=== PATIENT | female | born 1995 | race Caucasian/White ===

== ENCOUNTER 2018-01-20 09:59 | Emergency (ER) | payer OTHER ==
[2018-01-20 10:38] VITALS: BP 124/65
--- NOTE | 2018-01-20 11:06 | UC ---
Abdominal Pain Female HPI - HPI Summary HPI Summary: Pt presents with RLQ pain radiating to her right flank that began 2 days ago. Thinks she has been voiding more frequently than usual. Has never had a UTI before. No burning or pressure with urination. Some nausea, but still eating and drinking as per usual. She is sexually active without condoms, but does take a control pill. No hx of kidney stone. Denies fever, chills, SOB, chest pain, v/d/c, hematuria, vaginal discharge, or weakness/numbness. - History of Current Complaint Chief Complaint: EDAbdPain Stated Complaint: ABD PAIN Time Seen by Provider: 01/20/18 10:50 Hx Obtained From: Patient Hx Last Menstrual Period: 01/18/18 Onset/Duration: Sudden Onset Timing: Constant Severity Initially: Moderate Severity Currently: Moderate Pain Intensity: 5 Pain Scale Used: 0-10 Numeric Location: Discrete At: RLQ Radiates: Yes Radiates to: Flank Character: Aching, Sharp Aggravating Factor(s): Nothing Alleviating Factor(s): Nothing Allergies/Adverse Reactions: Allergies Allergy/AdvReac Type Severity Reaction Status Date / Time No Known Allergies Allergy Verified 01/20/18 12:21 PMH/Surg Hx/FS Hx/Imm Hx Previously Healthy: Yes - Surgical History Surgical History: None - Family History Known Family History: Positive: Cardiac Disease, Diabetes - Social History Occupation: Employed Full-time Lives: With Family Alcohol Use: Weekly Substance Use Type: Marijuana Smoking Status (MU): Former Smoker Review of Systems Constitutional: Negative Skin: Negative Respiratory: Negative Cardiovascular: Negative Gastrointestinal: Abdominal Pain Genitourinary: Negative Musculoskeletal: Negative Neurological: Negative Psychological: Negative All Other Systems Reviewed And Are Negative: Yes Physical Exam - Summary Physical Exam Summary: GENERAL: NAD. WDWN. No pain distress. SKIN: No rashes, sores, ulcers, masses, lesions. NECK: Supple. Nontender. No lymphadenopathy. CHEST: CTAB. No r/r/w. No accessory muscle use. Breathing comfortably and in no distress. CV: RRR. Without m/r/g. Pulses intact. Brisk cap refill. ABDOMEN: TTP RLQ over McBurney's point. Soft. No distention or guarding. No organomegaly. No CVA tenderness. Bowel sounds present x4. Negative heel strike and obturator sign. MSK: FROM and 5/5 strength B/L LEs. No edema. Negative SLR and NACHO NEURO: Alert. CN II-XII grossly intact. PSYCH: Age appropriate behavior. Triage Information Reviewed: Yes Vital Signs: Initial Vital Signs Temp 98.0 F 01/20/18 10:34 Pulse 59 01/20/18 10:34 Resp 18 01/20/18 10:34 BP 124/65 01/20/18 10:34 Pulse Ox 99 01/20/18 10:34 Abd Pain Female Course/Dx - Course Course Of Treatment: UA with Trace blood. Negative test. Given her RLQ pain with no reasonable eitology - I have recommened she seek further evaluation in the ED for rule out calculi, ovarian cyst, ectopic , and appendicitis. She was agreeable to this plan and said she would go by private vehicle - her mother will drive her. - Differential Dx/Diagnosis Provider Diagnoses: RLQ pain Discharge - Discharge Plan Condition: Stable Disposition: OTHER Discharge Disposition Comment: To [facility] ED by private car Referrals: Raquel Cruz NP [Primary Care Provider] - Additional Instructions: Please go to the [facility] ED for further evaluation of your RLQ pain.
--- NOTE | 2018-01-21 18:11 | ED ---
Progress - Progress Note Progress Note: Patient's pelvic culture reveals chlamydia. She was provided with empiric treatment while in ED during day of visit for STD's - this included Rocephin 250 mg IM and Zithromax 1 g by mouth. Attempted to contact patient and notify results, follow up on symptoms and impress upon her treatment of co-partner's as well as retesting prior to engaging in sexual intercourse. Voice mail reports that the "box is full and unable to leave messages". A letter will be mailed to her house. Form complete. Leah Mcwilliams, doug. Course/Dx - Course Course Of Treatment: UA with Trace blood. Negative test. Given her RLQ pain with no reasonable eitology - I have recommened she seek further evaluation in the ED for rule out calculi, ovarian cyst, ectopic , and appendicitis. She was agreeable to this plan and said she would go by private vehicle - her mother will drive her.
== END 2018-01-20 11:39 ==
LOC: UCEAST 09:59
DX: A74.9 Chlamydial infection, unspecified (principal); Z32.02 Encounter for pregnancy test, result negative; Z87.891 Personal history of nicotine dependence
CPT/HCPCS: 81003; 84702; 99212; G0463

== ENCOUNTER 2018-01-20 12:15 | Emergency (ER) | payer OTHER ==
[2018-01-20 12:50] LABS: ABS Basophils 0 10^3/ul (0-0.2); ABS Eosinophils 0.2 10^3/ul (0-0.6); ABS Lymphocytes 2.7 10^3/ul (1.0-4.8); ABS Nucleated RBC 0 10^3/ul; Eosinophil % 1.7 % (0-6); Hematocrit 44 % (35-47); Hemoglobin 15.1 g/dl (12.0-16.0); Lymphocyte % 22.9 % (25-47); Mean Corpuscular HGB Conc 35 g/dl (31-36); Mean Corpuscular Hemoglobin 31 pg (27-31); Mean Corpuscular Volume 89 fL (80-97); Mean Platelet Volume 7 um3 (7.4-10.4); Nucleated Red Blood Cells % 0.1; Platelet Count 349 10^3/ul (150-450); Red Blood Count 4.94 10^6/ul (4.0-5.4); Red Cell Distribution Width 13 % (10.5-15)
[2018-01-20 13:06] LABS: Urine Appearance Clear; Urine Blood Negative (Negative); Urine Color Straw; Urine Ketones Negative (Negative); Urine Protein Negative (Negative); Urine Specific Gravity 1.013 (1.010-1.030); Urine Urobilinogen Negative (Negative)
[2018-01-20 13:26] LABS: EGFR Non-African American 84.5 (>60)
[2018-01-20] MEDS ORDERED: Ketorolac INJ* 30 MG/ML 1 ML VIAL IV PUSH ONE (13:27)
--- NOTE | 2018-01-20 14:16 | RAD ---
INDICATION: Right lower quadrant pain. COMPARISON: There are no prior studies available for comparison. TECHNIQUE: Multiple real-time transabdominal images of the pelvis were obtained. FINDINGS: The uterus is normal in size, shape and echogenicity. The uterus measured 5.7 x 2.6 x 4.4 cm. The endometrial echo measured 0.4 cm in thickness. The right ovary measured 2.5 x 1.6 x 2.6 cm. The left ovary measured 2.5 x 1.4 x 1.4 cm. There is vascular flow within both ovaries. There are small bilateral follicular cysts. No free intraperitoneal fluid is seen. IMPRESSION: NEGATIVE EXAM.
[2018-01-20] MEDS ORDERED: Iohexol 300* (CONTRAST) 10 ML SDV IV ONE (14:31)
--- NOTE | 2018-01-20 16:14 | RAD ---
INDICATION: Right flank abdominal pain. COMPARISON: Comparison is made with a prior pelvic ultrasound January 20, 2018. TECHNIQUE: A CT scan of the abdomen and pelvis was performed with intravenous and oral contrast following intravenous injection of 96 ml of Omnipaque 300 nonionic contrast. Contiguous axial sections were obtained from the lung bases through the symphysis pubis. Images were reconstructed in the coronal and sagittal planes. FINDINGS: The lung bases are clear. No pleural effusion is present. The liver and spleen are within normal limits in size without significant focal abnormality. No calcified gallstones are seen. The pancreas appears to be within normal limits in size. The kidneys and adrenal glands are normal in size. No hydronephrosis is seen. No significant focal renal abnormality is seen. The aorta is normal in caliber and demonstrates homogeneous contrast opacification. No significant enlarged retroperitoneal lymph nodes are seen. The stomach, small and large bowel appear nondistended. The appendix is within normal limits. There is no evidence for diverticulitis or colitis. The uterus is anteverted and normal in size. No free intraperitoneal air or fluid is seen. There is a mild to moderate lumbar scoliosis convex toward the left side. No significant focal osseous normality is seen. IMPRESSION: NO EVIDENCE FOR ACUTE FINDING OR CAUSE FOR THE PATIENT'S ABDOMINAL PAIN IS SEEN.
[2018-01-20] MEDS ORDERED: cefTRIAXone VIAL(*) 500 MG in NS 0.9% 50 ML* 50 ML IVPB ONE (17:57)
[2018-01-20] MEDS ORDERED: Azithromycin TAB* 250 MG PO ONE (17:58)
[2018-01-20] MEDS ORDERED: cefTRIAXone VIAL(*) 250 MG VIAL IM ONE (18:07)
[2018-01-20] MEDS ORDERED: Lidocaine 2% PF * 5 ML VIAL ONE (18:12)
[2018-01-20 18:33] VITALS: BP 121/74
--- NOTE | 2018-01-22 13:29 | PN ---
Progress Note - Progress Note Date of Service: 01/22/18 Note: Patient vaginal cultures grew Candidiasis. Spoke with patient's and prescription for Diflucan for a one-time dose for this.
--- NOTE | 2018-01-31 14:06 | ED ---
Chacha Chairez Gabriel, scribed for Cj Smith MD on 01/20/18 at 1229 . Abdominal Pain/Female - HPI Summary HPI Summary: This patient is a 22 year old F presenting to [facility] accompanied by her father with a chief complaint of RLQ pain since 2 days. The pain began the same day as her period and she believed it was due to that, she has finished her menstruation cycle. The patient rates the sharp pain 7/10 in severity and states it radiates into her back. Symptoms alleviated by Tylenol and ibuprofen. Patient reports dysuria, vaginal irritation, SOB, diaphoresis, nausea, and diarrhea. Patient denies fever, vomiting, periumbilical pain, blood in stool, and vaginal discharge. Pt was seen at today and they r/o UTI. No history of ovarian cysts or kidney stones. - History of Current Complaint Chief Complaint: EDAbdPain Stated Complaint: ABD PAIN Time Seen by Provider: 01/20/18 12:23 Hx Obtained From: Patient Hx Last Menstrual Period: 01/18/18 Onset/Duration: Lasting Days - 2, Still Present Timing: Constant Severity Initially: Moderate Severity Currently: Moderate Pain Intensity: 7 Pain Scale Used: 0-10 Numeric Location: Discrete At: RLQ Radiates: Yes Radiates to: Back Character: Sharp Alleviating Factor(s): OTC Analgesics Associated Signs and Symptoms: Positive: Negative - fever, vomiting, periumbilical pain, blood in stool, and vaginal discharge, Other: - dysuria, vaginal irritation, SOB, diaphoresis, nausea, and diarrhea Allergies/Adverse Reactions: Allergies Allergy/AdvReac Type Severity Reaction Status Date / Time No Known Allergies Allergy Verified 01/20/18 12:21 Home Medications: Home Medications Ethinyl Estradiol/Drospirenone [Allison 28 Tablet (Nf)] 1 tab PO DAILY 01/20/18 [ History Confirmed 01/20/18] PMH/Surg Hx/FS Hx/Imm Hx Endocrine/Hematology History: Denies: Hx Diabetes, Hx Thyroid Disease Cardiovascular History: Denies: Hx Hypertension Respiratory History: Denies: Hx Asthma, Hx Chronic Obstructive Pulmonary Disease (COPD) GI History: Denies: Hx Ulcer Infectious Disease History: No Infectious Disease History: Denies: Hx Hepatitis, Hx Human Immunodeficiency Virus (HIV), Traveled Outside the [place] in Last 30 Days - Family History Known Family History: Positive: Cardiac Disease, Diabetes, Other - kidney stones - Social History Occupation: Employed Full-time - [employer] Lives: With Family Alcohol Use: Weekly Substance Use Type: Reports: Marijuana Smoking Status (MU): Former Smoker Review of Systems Positive: Skin Diaphoresis. Negative: Fever, Chills Negative: Erythema Negative: Sore Throat Negative: Chest Pain Positive: Shortness Of Breath - due to pain . Negative: Cough Gastrointestinal: Negative - periumbilical pain, blood in stool Positive: Abdominal Pain, Diarrhea, Nausea. Negative: Vomiting Genitourinary: Other - vaginal irritation Positive: dysuria. Negative: discharge, hematuria Negative: Myalgia, Edema Negative: Rash Neurological: Negative - dizziness All Other Systems Reviewed And Are Negative: Yes Physical Exam - Summary Physical Exam Summary: Constitutional: Well-developed, Well-nourished, Alert. (-) Distressed, not ill appearing Skin: Warm, Dry HENT: Normocephalic; Atraumatic Eyes: Conjunctiva normal Neck: Musculoskeletal ROM normal neck. (-) JVD, (-) Stridor, (-) Tracheal deviation Cardio: Rhythm regular, rate normal, Heart sounds normal; Intact distal pulses; The pedal pulses are 2+ and symmetric. Radial pulses are 2+ and symmetric. (-) Murmur Pulmonary/Chest wall: Effort normal. (-) Respiratory distress, (-) Wheezes, (-) Rales Abd: Soft, (+) Tenderness in RLQ, (-) Distension, (-) Guarding, (-) Rebound Musculoskeletal: (-) Edema Lymph: (-) Cervical adenopathy Neuro: Alert, Oriented x3 Psych: Mood and affect Normal Pelvic: theres was green cervical discharge, no cervical motion tenderness, mild right adnexal tenderness Triage Information Reviewed: Yes Vital Signs On Initial Exam: Initial Vitals Temp Pulse Resp BP Pulse Ox 97.6 F 78 18 122/78 97 01/20/18 12:18 01/20/18 12:18 01/20/18 12:18 01/20/18 12:18 01/20/18 12:18 Vital Signs Reviewed: Yes Diagnostics - Vital Signs Vital Signs Temp Pulse Resp BP Pulse Ox 01/20/18 12:18 97.6 F 78 18 122/78 97 - Laboratory Lab Results: Lab Results 01/20/18 01/20/18 01/20/18 Range/Units 12:40 12:40 12:40 WBC 12.0 H (3.5-10.8) 10^3/ul RBC 4.94 (4.0-5.4) 10^6/ul Hgb 15.1 (12.0-16.0) g/dl Hct 44 (35-47) % MCV 89 (80-97) fL MCH 31 (27-31) pg MCHC 35 (31-36) g/dl RDW 13 (10.5-15) % Plt Count 349 (150-450) 10^3/ul MPV 7 L (7.4-10.4) um3 Neut % (Auto) 66.6 (38-83) % Lymph % (Auto) 22.9 L (25-47) % Pender % (Auto) 8.4 H (0-7) % Eos % (Auto) 1.7 (0-6) % Baso % (Auto) 0.4 (0-2) % Absolute Neuts (auto) 8.0 H (1.5-7.7) 10^3/ul Absolute Lymphs (auto) 2.7 (1.0-4.8) 10^3/ul Absolute Monos (auto) 1.0 H (0-0.8) 10^3/ul Absolute Eos (auto) 0.2 (0-0.6) 10^3/ul Absolute Basos (auto) 0 (0-0.2) 10^3/ul Absolute Nucleated RBC 0 10^3/ul Nucleated RBC % 0.1 Sodium 136 (133-145) mmol/L Potassium 4.0 (3.5-5.0) mmol/L Chloride 105 (101-111) mmol/L Carbon Dioxide 23 (22-32) mmol/L Anion Gap 8 (2-11) mmol/L BUN 14 (6-24) mg/dL Creatinine 0.83 (0.51-0.95) mg/dL Est GFR ( Amer) 108.6 (>60) Est GFR (Non-Af Amer) 84.5 (>60) BUN/Creatinine Ratio 16.9 (8-20) Glucose 80 (70-100) mg/dL Lactic Acid (0.5-2.0) mmol/L Calcium 9.9 (8.6-10.3) mg/dL Total Bilirubin 0.40 (0.2-1.0) mg/dL AST 14 (13-39) U/L ALT 9 (7-52) U/L Alkaline Phosphatase 62 (34-104) U/L C-Reactive Protein 7.81 H (< 5.00) mg/L Total Protein 7.6 (6.4-8.9) g/dL Albumin 4.5 (3.2-5.2) g/dL Globulin 3.1 (2-4) g/dL Albumin/Globulin Ratio 1.5 (1-3) Urine Color Straw Urine Appearance Clear Urine pH 6.0 (5-9) Ur Specific [place] 1.013 (1.010-1.030) Urine Protein Negative (Negative) Urine Ketones Negative (Negative) Urine Blood Negative (Negative) Urine Nitrate Negative (Negative) Urine Bilirubin Negative (Negative) Urine Urobilinogen Negative (Negative) Ur Leukocyte Esterase Negative (Negative) Urine Glucose Negative (Negative) C.trachomatis (Amp Det) (Negative) N.gonorrhoeae (Amp Det) (Negative) T.vaginalis (Amp Det) (Negative) 01/20/18 01/20/18 Range/Units 12:40 17:56 WBC (3.5-10.8) 10^3/ul RBC (4.0-5.4) 10^6/ul Hgb (12.0-16.0) g/dl Hct (35-47) % MCV (80-97) fL MCH (27-31) pg MCHC (31-36) g/dl RDW (10.5-15) % Plt Count (150-450) 10^3/ul MPV (7.4-10.4) um3 Neut % (Auto) (38-83) % Lymph % (Auto) (25-47) % Pender % (Auto) (0-7) % Eos % (Auto) (0-6) % Baso % (Auto) (0-2) % Absolute Neuts (auto) (1.5-7.7) 10^3/ul Absolute Lymphs (auto) (1.0-4.8) 10^3/ul Absolute Monos (auto) (0-0.8) 10^3/ul Absolute Eos (auto) (0-0.6) 10^3/ul Absolute Basos (auto) (0-0.2) 10^3/ul Absolute Nucleated RBC 10^3/ul Nucleated RBC % Sodium (133-145) mmol/L Potassium (3.5-5.0) mmol/L Chloride (101-111) mmol/L Carbon Dioxide (22-32) mmol/L Anion Gap (2-11) mmol/L BUN (6-24) mg/dL Creatinine (0.51-0.95) mg/dL Est GFR ( Amer) (>60) Est GFR (Non-Af Amer) (>60) BUN/Creatinine Ratio (8-20) Glucose (70-100) mg/dL Lactic Acid 0.8 (0.5-2.0) mmol/L Calcium (8.6-10.3) mg/dL Total Bilirubin (0.2-1.0) mg/dL AST (13-39) U/L ALT (7-52) U/L Alkaline Phosphatase (34-104) U/L C-Reactive Protein (< 5.00) mg/L Total Protein (6.4-8.9) g/dL Albumin (3.2-5.2) g/dL Globulin (2-4) g/dL Albumin/Globulin Ratio (1-3) Urine Color Urine Appearance Urine pH (5-9) Ur Specific [place] (1.010-1.030) Urine Protein (Negative) Urine Ketones (Negative) Urine Blood (Negative) Urine Nitrate (Negative) Urine Bilirubin (Negative) Urine Urobilinogen (Negative) Ur Leukocyte Esterase (Negative) Urine Glucose (Negative) C.trachomatis (Amp Det) Positive A (Negative) N.gonorrhoeae (Amp Det) Negative (Negative) T.vaginalis (Amp Det) Negative (Negative) Result Diagrams: 01/20/18 12:40 01/20/18 12:40 Lab Statement: Any lab studies that have been ordered have been reviewed, and results considered in the medical decision making process. - CT CT ABD/Pelvis CT Interpretation Completed By: Radiologist - NO EVIDENCE FOR ACUTE FINDING OR CAUSE FOR THE PATIENT'S ABDOMINAL PAIN IS SEEN. ED physician has reviewed this radiology report. - Ultrasound No standard instances Ultrasound Interpretation Completed By: Radiologist - Pelvic US reveals, per radiologist, negative exam ED physician has reviewed this radiology report. Re-Evaluation - Re-Evaluation First Eval Re-Evaluation Time: 14:46 Change: Improved Comment: After toradol the patient symptoms have significantly improved. Second Eval Re-Evaluation Time: 18:06 Change: Unchanged - I discussed the test results with the patient and told her about the treatment plan. She understands and agrees. Abdominal Pain Fem Course/Dx - Course Course Of Treatment: Pelvic US reveals, per radiologist, negative exam. CT ABD/ Pelvis reveals, per radiologist, NO EVIDENCE FOR ACUTE FINDING OR CAUSE FOR THE PATIENT'S ABDOMINAL PAIN IS. I will treat empirically for GC chlamydia in the ED given the urinary symptoms I will also treat empirically for UTI bending urine cultures. Test results with no significant abnormalities. In the ED course the patient was given toradol, rocephin, and Zithromax. Dx ABD pain. Patient will be discharged with prescription for bactrim and follow up from in two days. The patient is agreeable with this plan. - Diagnoses Provider Diagnoses: Abdominal pain, Vaginal discharge Discharge - Sign-Out/Discharge Documenting (check all that apply): Discharge - DC - Discharge Plan Condition: Stable Disposition: HOME Prescriptions: Fluconazole [Diflucan 150 MG (NF)] 150 mg PO ONCE #1 tab Sulfamethox/Trimethoprim DS* [Bactrim DS 800/160 TAB*] 1 tab PO BID #6 tab traMADol TAB* [Ultram*] 50 mg PO Q6HR PRN #8 tab MDD 4 PRN Reason: Pain - Moderate To Severe Patient Education Materials: Abdominal Pain (ED) Forms: *Work Release Referrals: Raquel Cruz NP [Primary Care Provider] - Additional Instructions: Follow up at urgent care in two days. RETURN TO EMERGENCY DEPARTMENT FOR ANY NEW OR WORSENING SYMPTOMS - Billing Disposition and Condition Condition: STABLE Disposition: HOME The documentation as recorded by the Chacha gongora Gabriel accurately reflects the service I personally performed and the decisions made by me, Cj Smith MD.
== END 2018-01-20 18:30 | disposition home or self-care (01) ==
LOC: ED 12:15
DX: R10.31 Right lower quadrant pain (principal); R07.9 Chest pain, unspecified; N89.8 Other specified noninflammatory disorders of vagina; Z87.891 Personal history of nicotine dependence; R06.02 Shortness of breath; R30.0 Dysuria
CPT/HCPCS: 36415; 74177; 76856; 80053; 81003; 83605; 85025; 86140; 87480; 87491; 87510; 87591; 87661; 99283; A9270-GY; J0696; J1885; Q9967

== ENCOUNTER 2018-08-17 12:45 | Emergency (ER) | payer OTHER ==
[2018-08-17 13:41] LABS: ABS Basophils 0 10^3/ul (0-0.2); ABS Eosinophils 0.1 10^3/ul (0-0.6); ABS Lymphocytes 0.9 10^3/ul (1.0-4.8); ABS Monocytes 1.2 10^3/ul (0-0.8); ABS Neutrophils 2.8 10^3/ul (1.5-7.7); ABS Nucleated RBC 0 10^3/ul; Eosinophil % 1.6 % (0-6); Hematocrit 41 % (35-47); Hemoglobin 14.1 g/dl (12.0-16.0); Lymphocyte % 18.5 % (25-47); Mean Corpuscular HGB Conc 35 g/dl (31-36); Mean Corpuscular Hemoglobin 31 pg (27-31); Mean Corpuscular Volume 88 fL (80-97); Nucleated Red Blood Cells % 0.4; Platelet Count 256 10^3/ul (150-450); Red Cell Distribution Width 13 % (10.5-15)
[2018-08-17 14:09] LABS: EGFR Non-African American 88.7 (>60)
[2018-08-17 15:02] LABS: Urine Appearance Clear; Urine Blood Negative (Negative); Urine Color Yellow; Urine Ketones Negative (Negative); Urine Protein Negative (Negative); Urine Specific Gravity 1.014 (1.010-1.030); Urine Urobilinogen Negative (Negative)
--- NOTE | 2018-08-17 15:39 | ED ---
Abdominal Pain/Female - HPI Summary HPI Summary: Patient is a 23-year-old female presents to the ED with right-side body pain wrapping around to the rhomboid area. No history of kidney stones or gallstones. She states symptoms began approximately 2 days ago, have remained constant, worse with positioning, better with rest. Denies any alleviation or aggravation with eating or drinking. She has not tried any medication for relief. Denies any urinary symptoms, abdominal pain, nausea, vomiting, diarrhea , constipation, suprapubic tenderness, or urinary symptoms. She takes no medications and is otherwise healthy. - History of Current Complaint Chief Complaint: EDAbdPain Stated Complaint: ABD/FLANK PAIN Time Seen by Provider: 08/17/18 12:52 Hx Obtained From: Patient Hx Last Menstrual Period: 01/18/18 ?: No Onset/Duration: Sudden Onset Timing: Constant Severity Initially: Moderate Severity Currently: Moderate Pain Intensity: 6 Pain Scale Used: 0-10 Numeric Location: Other - right side body Radiates: No Character: Cramping Aggravating Factor(s): Nothing Alleviating Factor(s): Nothing Associated Signs and Symptoms: Positive: Negative. Negative: Urinary Symptoms, Decreased Appetite, Nausea, Vomiting Allergies/Adverse Reactions: Allergies Allergy/AdvReac Type Severity Reaction Status Date / Time No Known Allergies Allergy Verified 08/17/18 12:50 PMH/Surg Hx/FS Hx/Imm Hx Previously Healthy: Yes Endocrine/Hematology History: Denies: Hx Diabetes, Hx Thyroid Disease Cardiovascular History: Denies: Hx Hypertension Respiratory History: Denies: Hx Asthma, Hx Chronic Obstructive Pulmonary Disease (COPD) GI History: Denies: Hx Ulcer History: Denies: Hx Renal Disease - Immunization History Hx Pertussis Vaccination: No Immunizations Up to Date: Yes Infectious Disease History: No Infectious Disease History: Denies: Hx Hepatitis, Hx Human Immunodeficiency Virus (HIV), Traveled Outside the [place] in Last 30 Days - Family History Known Family History: Positive: Cardiac Disease, Diabetes, Other - kidney stones - Social History Occupation: Employed Full-time Lives: With Family Alcohol Use: Weekly Hx Substance Use: Yes Substance Use Type: Reports: Marijuana Hx Tobacco Use: Yes Smoking Status (MU): Former Smoker Review of Systems Constitutional: Negative Negative: Fever, Chills, Fatigue, Skin Diaphoresis Negative: Palpitations, Chest Pain Negative: Shortness Of Breath, Cough - , Negative: Abdominal Pain, Vomiting, Diarrhea, Nausea Genitourinary: Negative Positive: no symptoms reported, see HPI Positive: Myalgia - right sided pain to the body Skin: Negative All Other Systems Reviewed And Are Negative: Yes Physical Exam Triage Information Reviewed: Yes Vital Signs On Initial Exam: Initial Vitals Temp Pulse Resp BP Pulse Ox 97.6 F 88 16 136/75 98 08/17/18 12:46 08/17/18 12:46 08/17/18 12:46 08/17/18 12:46 08/17/18 12:46 Vital Signs Reviewed: Yes Appearance: Positive: Well-Appearing, Well-Nourished Skin: Positive: Warm, Skin Color Reflects Adequate Perfusion Head/Face: Positive: Normal Head/Face Inspection Eyes: Positive: EOMI, GEORGINA, Conjunctiva Clear Neck: Positive: Supple, No Lymphadenopathy Respiratory/Lung Sounds: Positive: Clear to Auscultation, Breath Sounds Present Cardiovascular: Positive: RRR, Pulses are Symmetrical in both Upper and Lower Extremities Musculoskeletal: Positive: Normal, Strength/ROM Intact Neurological: Positive: Sensory/Motor Intact, Alert, Oriented to Person Place, Time, Speech Normal Psychiatric: Positive: Normal, Affect/Mood Appropriate AVPU Assessment: Alert Diagnostics - Vital Signs Vital Signs Temp Pulse Resp BP Pulse Ox 08/17/18 14:00 84 08/17/18 13:03 87 142/85 97 08/17/18 13:02 85 98 08/17/18 12:46 97.6 F 88 16 136/75 98 - Laboratory Lab Results: Lab Results 08/17/18 08/17/18 08/17/18 Range/Units 13:25 13:25 13:25 WBC 5.0 (3.5-10.8) 10^3/ul RBC 4.60 (4.00-5.40) 10^6/ul Hgb 14.1 (12.0-16.0) g/dl Hct 41 (35-47) % MCV 88 (80-97) fL MCH 31 (27-31) pg MCHC 35 (31-36) g/dl RDW 13 (10.5-15) % Plt Count 256 (150-450) 10^3/ul MPV 7.0 L (7.4-10.4) um3 Neut % (Auto) 56.2 (38-83) % Lymph % (Auto) 18.5 L (25-47) % [place] % (Auto) 23.2 H (0-7) % Eos % (Auto) 1.6 (0-6) % Baso % (Auto) 0.5 (0-2) % Absolute Neuts (auto) 2.8 (1.5-7.7) 10^3/ul Absolute Lymphs (auto) 0.9 L (1.0-4.8) 10^3/ul Absolute Monos (auto) 1.2 H (0-0.8) 10^3/ul Absolute Eos (auto) 0.1 (0-0.6) 10^3/ul Absolute Basos (auto) 0 (0-0.2) 10^3/ul Absolute Nucleated RBC 0 10^3/ul Nucleated RBC % 0.4 Sodium 139 (135-145) mmol/L Potassium 3.9 (3.5-5.0) mmol/L Chloride 108 (101-111) mmol/L Carbon Dioxide 25 (22-32) mmol/L Anion Gap 6 (2-11) mmol/L BUN 10 (6-24) mg/dL Creatinine 0.79 (0.51-0.95) mg/dL Est GFR ( Amer) 107.3 (>60) Est GFR (Non-Af Amer) 88.7 (>60) BUN/Creatinine Ratio 12.7 (8-20) Glucose 90 (70-100) mg/dL Lactic Acid 0.5 (0.5-2.0) mmol/L Calcium 9.3 (8.6-10.3) mg/dL Total Bilirubin 0.40 (0.2-1.0) mg/dL AST 18 (13-39) U/L ALT 15 (7-52) U/L Alkaline Phosphatase 60 (34-104) U/L Total Protein 6.9 (6.4-8.9) g/dL Albumin 4.1 (3.2-5.2) g/dL Globulin 2.8 (2-4) g/dL Albumin/Globulin Ratio 1.5 (1-3) Urine Color Urine Appearance Urine pH (5-9) Ur Specific [place] (1.010-1.030) Urine Protein (Negative) Urine Ketones (Negative) Urine Blood (Negative) Urine Nitrate (Negative) Urine Bilirubin (Negative) Urine Urobilinogen (Negative) Ur Leukocyte Esterase (Negative) Urine Glucose (Negative) 08/17/18 Range/Units 14:52 WBC (3.5-10.8) 10^3/ul RBC (4.00-5.40) 10^6/ul Hgb (12.0-16.0) g/dl Hct (35-47) % MCV (80-97) fL MCH (27-31) pg MCHC (31-36) g/dl RDW (10.5-15) % Plt Count (150-450) 10^3/ul MPV (7.4-10.4) um3 Neut % (Auto) (38-83) % Lymph % (Auto) (25-47) % [place] % (Auto) (0-7) % Eos % (Auto) (0-6) % Baso % (Auto) (0-2) % Absolute Neuts (auto) (1.5-7.7) 10^3/ul Absolute Lymphs (auto) (1.0-4.8) 10^3/ul Absolute Monos (auto) (0-0.8) 10^3/ul Absolute Eos (auto) (0-0.6) 10^3/ul Absolute Basos (auto) (0-0.2) 10^3/ul Absolute Nucleated RBC 10^3/ul Nucleated RBC % Sodium (135-145) mmol/L Potassium (3.5-5.0) mmol/L Chloride (101-111) mmol/L Carbon Dioxide (22-32) mmol/L Anion Gap (2-11) mmol/L BUN (6-24) mg/dL Creatinine (0.51-0.95) mg/dL Est GFR ( Amer) (>60) Est GFR (Non-Af Amer) (>60) BUN/Creatinine Ratio (8-20) Glucose (70-100) mg/dL Lactic Acid (0.5-2.0) mmol/L Calcium (8.6-10.3) mg/dL Total Bilirubin (0.2-1.0) mg/dL AST (13-39) U/L ALT (7-52) U/L Alkaline Phosphatase (34-104) U/L Total Protein (6.4-8.9) g/dL Albumin (3.2-5.2) g/dL Globulin (2-4) g/dL Albumin/Globulin Ratio (1-3) Urine Color Yellow Urine Appearance Clear Urine pH 7.0 (5-9) Ur Specific [place] 1.014 (1.010-1.030) Urine Protein Negative (Negative) Urine Ketones Negative (Negative) Urine Blood Negative (Negative) Urine Nitrate Negative (Negative) Urine Bilirubin Negative (Negative) Urine Urobilinogen Negative (Negative) Ur Leukocyte Esterase Negative (Negative) Urine Glucose Negative (Negative) Result Diagrams: 08/17/18 13:25 08/17/18 13:25 Lab Statement: Any lab studies that have been ordered have been reviewed, and results considered in the medical decision making process. Abdominal Pain Fem Course/Dx - Course Course Of Treatment: Inquisitive, the patient is evaluated for right-sided body pain. Positive Gordon's, however she endorses most of the pain with right upper quadrant palpation to the right side body with radiation over into the rhomboid area. Slight right-sided CVA tenderness, no left-sided CVA tenderness. Denies any urinary symptoms. Not worse or better after eating. Labs obtained which show normal liver enzymes, normal levels BUN and creatinine and UA is negative for any microscopic hematuria. For these reasons, I do not believe any imaging is warranted at this time as she is low risk for kidney stones or gallstones. She declines pain medications and states her pain is currently a 3/10, constant and aching, worse with movement. She will be diagnosed with muscular strain. - Diagnoses Differential Diagnosis: Positive: Renal Colic, Urinary Tract Infection Provider Diagnoses: Muscle strain Discharge - Sign-Out/Discharge Documenting (check all that apply): Patient Departure - Discharge Plan Condition: Stable Disposition: HOME Referrals: Raquel Cruz NP [Primary Care Provider] - Additional Instructions: Ibuprofen 600mg three times daily for discomfort - Billing Disposition and Condition Condition: STABLE Disposition: Home
[2018-08-17 15:48] VITALS: BP 135/82
== END 2018-08-17 15:48 | disposition home or self-care (01) ==
LOC: ED 12:45
DX: S39.011A Strain of muscle, fascia and tendon of abdomen, initial encounter (principal); X58.XXXA Exposure to other specified factors, initial encounter; Y92.9 Unspecified place or not applicable; Z87.891 Personal history of nicotine dependence
CPT/HCPCS: 36415; 80053; 81003; 83605; 85025; 99282

== ENCOUNTER 2019-06-13 13:13 | Emergency (ER) | payer OTHER ==
[2019-06-13 13:31] VITALS: BP 129/82
--- NOTE | 2019-06-13 13:50 | UC ---
Respiratory Complaint HPI - HPI Summary HPI Summary: cough, nasal and sinus congestion for 3 days no fever - History of Current Complaint Chief Complaint: UCRespiratory Stated Complaint: EAR PAIN CHEST CONGESTION Time Seen by Provider: 06/13/19 13:45 Hx Obtained From: Patient Hx Last Menstrual Period: 05/10/19 ?: No Onset/Duration: Sudden Onset, Lasting Days - 3, Still Present Timing: Constant Pain Intensity: 5 Pain Scale Used: 0-10 Numeric Character: Cough: Nonproductive Aggravating Factors: Nothing Alleviating Factors: Nothing Associated Signs And Symptoms: Positive: Pleuritic Chest Pain, URI, Nasal Congestion. Negative: Fever, Chills - Allergies/Home Medications Allergies/Adverse Reactions: Allergies Allergy/AdvReac Type Severity Reaction Status Date / Time No Known Allergies Allergy Verified 06/13/19 13:31 PMH/Surg Hx/FS Hx/Imm Hx Previously Healthy: Yes - Surgical History Surgical History: None - Family History Known Family History: Positive: Cardiac Disease, Diabetes, Other - kidney stones - Social History Occupation: Employed Full-time Lives: With Family Alcohol Use: Occasionally Substance Use Type: None Smoking Status (MU): Former Smoker Review of Systems All Other Systems Reviewed And Are Negative: Yes Constitutional: Positive: Negative Skin: Positive: Negative Eyes: Positive: Negative ENT: Positive: Sore Throat, Nasal Discharge Respiratory: Positive: Cough Cardiovascular: Positive: Negative Gastrointestinal: Positive: Negative Genitourinary: Positive: Negative Motor: Positive: Negative Neurovascular: Positive: Negative Musculoskeletal: Positive: Negative Neurological: Positive: Negative Psychological: Positive: Negative Is Patient Immunocompromised?: No Physical Exam Triage Information Reviewed: Yes Appearance: Well-Appearing, No Pain Distress Vital Signs: Initial Vital Signs Temp 99 F 06/13/19 13:29 Pulse 97 06/13/19 13:29 Resp 17 06/13/19 13:29 BP 129/82 06/13/19 13:29 Pulse Ox 99 06/13/19 13:29 Eye Exam: Normal Eyes: Positive: Conjunctiva Clear ENT Exam: Normal Dental Exam: Normal Neck exam: Normal Neck: Positive: Supple, Nontender, No Lymphadenopathy Respiratory Exam: Normal Respiratory: Positive: Chest non-tender, Lungs clear, Normal breath sounds, No respiratory distress, No accessory muscle use Cardiovascular Exam: Normal Cardiovascular: Positive: RRR, No Murmur, Pulses Normal, Brisk Capillary Refill Musculoskeletal Exam: Normal Musculoskeletal: Positive: Strength Intact, ROM Intact, No Edema Neurological Exam: Normal Neurological: Positive: Alert, Muscle Tone Normal Psychological Exam: Normal Skin Exam: Normal Respiratory Course/Dx - Course Course Of Treatment: increase fluids, tessalon, albuterol, flonase follow with pcp prn - Differential Dx/Diagnosis Provider Diagnosis: URI (upper respiratory infection) Discharge - Sign-Out/Discharge Documenting (check all that apply): Patient Departure All imaging exams completed and their final reports reviewed: No Studies - Discharge Plan Condition: Stable Disposition: HOME Prescriptions: Albuterol HFA INHALER* [Ventolin HFA Inhaler*] 2 puff INH Q6H PRN #1 mdi PRN Reason: cough/chest tightness Benzonatate CAP* [Tessalon 100 MG CAP*] 1 - 2 mg PO TID PRN #40 cap PRN Reason: Cough Fluticasone NASAL SPRAY 50MCG* [Flonase NASAL SPRAY 50MCG*] 2 spray BOTH NARES DAILY #1 btl Patient Education Materials: Upper Respiratory Infection (ED) Forms: *Work Release Referrals: Raquel Cruz [employer] [Primary Care Provider] - If Needed - Billing Disposition and Condition Condition: STABLE Disposition: Home - Attestation Statements Provider Attestation: This patient was not seen by me. I was available to consult. GIULIA
== END 2019-06-13 14:06 | disposition home or self-care (01) ==
LOC: UCEAST 13:13
DX: J06.9 Acute upper respiratory infection, unspecified (principal); Z87.891 Personal history of nicotine dependence
CPT/HCPCS: 99212; G0463